=== PATIENT | female | born 1960 | race Asian ===

== ENCOUNTER 2021-04-01 12:59 | Outpatient (CLI) | payer OTHER ==
--- NOTE | 2021-04-02 12:15 | Mammography Report ---
BILATERAL DIGITAL SCREENING MAMMOGRAM 3D/2D: 04/01/2021 CLINICAL: Routine screening. Comparison is made to exams dated: 11/04/2018 mammogram, 06/22/2017 mammogram, and 11/19/2015 mammogra m - [facility]. The tissue of both breasts is heterogeneously dense. This may lower the sen sitivity of mammography. No significant masses, calcifications, or other findings are seen in either breast. There has been no significant interval change. IMPRESSION: NEGATIVE There is no mammographic evidence of malignancy. A 1 year screening mammogram is recommended. This exam was interpreted at Station ID: [id number]. NOTE: For mammograms, a report in lay terms will be sent to the patient. Approximately 15% of breast malignancies will not be visualized mammographically. In the management of a palpable breast mass, a negative mammogram must not discourage biopsy of a clinically suspicious lesion. Electronically Signed By: Robel romero/yasmin:04/01/2021 15:55:12 ACR BI-RADS Category 1: Negative 3341F PARENCHYMAL PATTERN: (D) - The breast(s) demonstrate(s) heterogeneously dense fibroglandular jatinder altman. BI-RADS CATEGORY: (1) - 1 RECOMMENDATION: (ANNUAL) - Recommend routine annual screening mammography. [id number] 1 year screening LATERALITY: (B)
== END 2021-04-01 13:00 | disposition home or self-care (01) ==
LOC: DI 12:59
DX: Z12.31 Encounter for screening mammogram for malignant neoplasm of breast (principal)

== ENCOUNTER 2024-04-04 09:34 | Outpatient (CLI) | payer OTHER ==
[~2024-04-04 09:34] MED LIST: GADOTERATE MEGLUMINE 7.5 MMOL/15 ML VIAL ONE
--- NOTE | 2024-04-04 16:32 | MRI Report ---
PROCEDURE: Pelvis W/WO INDICATIONS: ENLARGED OVARY CONTRAST: Clariscan 10.8ml TECHNIQUE: Coronal ultra fast SE, sagittal breath-hold T2 FSE; axial T1 FSE with and without fat saturation thro ugh the pelvis. Optional long- and short-axis uterine nonbreath-hold T2 FSE through the uterus. Sag ittal or axial dynamic ultra fast GE during administration of contrast. Post-contrast axial or coron al ultra fast GE / 2-D spoiled GE with fat saturation from the iliac crests to the symphysis. Option al diffusion weighted imaging and ADC may be performed. COMPARISON: CT abdomen pelvis 02/21/2024 FINDINGS: Image quality: Excellent. Uterus: The uterus is absent. The vaginal cuff appears normal. Adnexa: The left ovary is diminutive, appropriate for postmenopausal female. The right ovary is repla pushpa by a thin-walled, unilocular, homogeneous cyst measuring 7.1 x 6.9 x 6.7 cm. No septations or mur al nodularity. No significant peripheral, nodular, or septal enhancement. Urinary system: Bladder wall is normal in thickness. Distal ureters are non distended. Urethra cordell ears normal in morphology. Nodes and vessels: No pelvic or inguinal adenopathy by size criteria. Iliac vessels are normal in s ize. Bowel and peritoneum: No pathologic free pelvic fluid. The appendix appears normal. Inferior colon and small bowel loops are normal in caliber. Soft tissues: No inguinal hernias. No findings of pelvic floor incompetence in the absence of provo cation. Bones: Marrow demonstrates normal overall signal. IMPRESSION: Thin-walled right ovarian simple cyst without suspicious features measuring 7.1 cm. This is likely a benign cystadenoma. Follow-up ultrasound in 6-12 months to assess for size change is recommended. Normal left ovary. Hysterectomy. Reviewed by: Dulce Maria Holly MD on 04/04/2024 4:30 PM PDT Approved by: Dulce Maria Holly MD on 04/04/2024 4:30 PM PDT Station ID: [id number]
[2024-04-04] MEDS: GADOTERATE MEGLUMINE 7.5 MMOL/15 ML VIAL IVP ONE (17:15)
== END 2024-04-04 09:35 | disposition home or self-care (01) ==
LOC: DI 09:34
PROVIDERS: ATTEND Nurse Practitioner Family
DX: N83.291 Other ovarian cyst, right side (principal); Z90.710 Acquired absence of both cervix and uterus

== ENCOUNTER 2025-04-23 04:53 | Observation (INO) ==
--- OUTSIDE RECORDS SUMMARY | 2025-04-23 05:16 | EXTERNAL MEDICAL SUMMARY RPT | Continuity of Care Document ---
Author Organization [facility] Address [address] [place] [address] [address] [place] [address] Phone Problems date description facility 2025-02-07 12:44 Unspecified ovarian cyst, right side [facility] 2025-02-12 10:55 Unspecified ovarian cyst, right side [facility] 2025-02-12 10:59 Unspecified ovarian cyst, right side [facility] 2025-02-26 11:04 Unspecified ovarian cyst, right side [facility] 2025-02-28 10:24 Unspecified ovarian cyst, right side [facility] 2025-03-02 15:11 Unspecified ovarian cyst, right side [facility] 2025-03-15 13:26 Unspecified ovarian cyst, right side [facility] 2025-03-21 14:42 Unspecified ovarian cyst, right side [facility] 2025-03-21 14:43 Unspecified ovarian cyst, right side [facility] Social History date description facility
[2025-04-23 05:31] LABS: HCT - HEMATOCRIT 37.5 % (37.0-47.0); HGB - HEMOGLOBIN 12.4 g/dL (12.0-16.0); MEAN PLATELET VOLUME 10.6 fL (7.9-10.8); NRBC ABSOLUTE COUNT (AUTO) 0.00 x10^3/uL; NUCLEATED RED BLOOD CELLS AUTO 0.0 /100WBC; PLT - PLATELET COUNT 153 10^3/uL (130-450); RED CELL DISTRIBUTION WIDTH 13.1 % (12.0-15.0)
[2025-04-23] MEDS: SODIUM CHLORIDE 0.9% 1,000 ML IV STA (05:31)
[2025-04-23 05:37] LABS: INR 1.4 (0.8-1.2); PT - PROTHROMBIN TIME 15.4 secs (9.9-12.6)
[2025-04-23 05:41] LABS: SLIDE REVIEW? Indicated
[2025-04-23 05:49] LABS: ALT ALANINE AMINOTRANSFERASE 98.0 IU/L (10-60); AST ASPARTATE AMINOTRANSFERASE 171.0 IU/L (10-42); BUN - BLOOD UREA NITROGEN 15.0 mg/dL (6-20); CARBON DIOXIDE - CO2 23.0 mmol/L (21-32); CREATININE 0.7 mg/dL (0.6-1.3); GFR - MDRD 84.0 (>89)
[2025-04-23 05:56] LABS: PLATELET ESTIMATE, MANUAL NORMAL (130-450,000) (NORMAL); PLATELET MORPHOLOGY NORMAL APPEARANCE (NORMAL); RBC MORPHOLOGY (MULTIPLE) 2+ MACROCYTOSIS (NORMAL); SLIDE SENT FOR PATH REVIEW? Indicated; WBC MORPHOLOGY (MULTIPLE) NORMAL APPEARANCE (NORMAL)
--- NOTE | 2025-04-23 07:10 | ED Physician Documentation ---
History of Present Illness Stated complaint Stated Complaint: GI Chief complaint Chief Complaint: General History obtained from History obtained from: Patient Additonal information Additional information: The patient comes to the emergency department chief complaint of rectal bleeding that started overnight. She states that she felt as though she needed to have a bowel movement but then when she looked in the toilet, it looked like all blood and clots with a little bit of grainy material in it. That was around 3 AM. She states she has had a total of 4 episodes so far and they have all been bright red blood. She just went in a hat in the toilet in her room in the emergency department, and states that now she is passing more clots. She denies any lightheadedness or shortness of breath. No abdominal pain. She has a history of diverticular bleed about 10 years ago and at that time she had to have surgery. Dr. Lutz was her surgeon. No other complaints at this time. She is not on anticoagulation. Meds/Allgy Home Medications Ambulatory Orders Medication Instructions Recorded Confirmed atorvastatin 10 mg tablet (Lipitor) 10 mg PO QDAY 01/3103/15/25 felodipine 2.5 mg tablet,extended 2.5 mg PO QDAY 09/1403/15/25 release 24 hr metoprolol succinate 50 mg 50 mg PO QDAY 09/14/2403/02 tablet,extended release 24 hr sodium sul 1.479 gram-potas ch See Rx Instructions PO PER PKG DIR 12/08/24 03/15/25 0.188 gram-magnes sul 0.225 gram #24 tabs tablet (Sutab) Allergies Allergies Allergy/AdvReac Type Severity Reaction Status Date / Time ofloxacin Allergy Severe Unknown Verified 04/23/25 05:07 sulfamethoxazole Allergy Severe Unknown Verified 04/23/25 05:07 trimethoprim Allergy Severe Unknown Verified 04/23/25 05:07 amoxicillin Allergy Unknown Verified 04/23/25 05:07 Penicillins Allergy Unknown Verified 04/23/25 05:07 PFSH Active Problems All Active Problems (Updated 12/06/24 @ 16:47 by Pepito Lutz MD) Colon cancer screening (Acute) Dyspareunia in female (Acute) Right ovarian cyst (Acute) Edema (Acute) DVT prophylaxis (Acute) Benign essential hypertension (Acute) Hypokalemia (Acute) Medical History Medical History (Updated 12/06/24 @ 16:47 by Pepito Lutz MD) Anemia due to acute blood loss GI bleed Lower gastrointestinal bleed Diverticulosis large intestine w/o perforation or abscess w/bleeding Perforation of colon as colonoscopy complication Steatosis of liver Osteoporosis Hypertensive disorder Hyperlipoproteinemia GERD (gastroesophageal reflux disease) Surgical History Surgical History (Updated 12/06/24 @ 16:47 by Pepito Lutz MD) S/P partial colectomy Hx of colonoscopy 05/20/2015 - formerly [facility] Dr. Lutz NEG 10yr recall History of hysterectomy History of hernia surgery 2017 History of colon surgery Family History Family History Mother Colon cancer High blood pressure Tuberculosis Social History Social History Do you dip or chew tobacco?: No Do you feel safe in your home environment?: Yes History of physical, verbal, emotional, or financial abuse?: No ETOH Use: Frequency: Daily Exam Exam Vital Signs: Vital Signs x48h Temp Pulse Resp BP Pulse Ox 04/23/25 04:53 36.4 C L 113 H 18 146/66 H 100 Constitutional normal general appearance and no apparent distress HENMT normocephalic, head/scalp atraumatic, external nose normal and oral mucous membranes normal Eyes EOMs intact bilaterally Neck/C-Spine visual inspection normal and supple Respiratory breath sounds equal bilaterally, normal respiratory effort and clear to aus cultation bilaterally Cardiovascular normal heart rate noted, regular rhythm noted and no edema Gastrointestinal abdomen normal to inspection, abdomen soft to palpation, nontender to palpation and nondistended Genitourinary no CVA tenderness Extremities normal to inspection Neurology Alert, grossly intact Psychiatry mental status grossly normal Skin skin color normal Results Vitals Vitals: Vital Signs - 24 hr 04/23/25 04:53 Temperature 36.4 C L Temperature Source Temporal Artery Scan Pulse Rate 113 H Respiratory Rate 18 Blood Pressure 146/66 H O2 Saturation 100 O2 Source Room air Pain Intensity 0 Oxygen O2 Source Room air Labs Labs: Laboratory Tests 04/23/25 05:22 WBC 8.0 RBC 3.38 L Hgb 12.4 Hct 37.5 MCV 110.9 H MCH 36.7 H MCHC 33.1 RDW 13.1 Plt Count 153 MPV 10.6 Neut # (Auto) 3.9 Lymph # (Auto) 3.1 [place] # (Auto) 0.8 Eos # (Auto) 0.1 Baso # (Auto) 0.1 Absolute Nucleated RBC 0.00 Nucleated RBC % 0.0 Manual Slide Review Indicated WBC Morphology NORMAL APPEARANCE Platelet Estimate NORMAL (130-450,000) Platelet Morphology NORMAL APPEARANCE RBC Morph Micro Appear 2+ MACROCYTOSIS PT 15.4 H INR 1.4 H Sodium 139 Potassium 4.1 Chloride 102 Carbon Dioxide 23 Anion Gap 14.0 H BUN 15 Creatinine 0.7 Estimated GFR (MDRD) 84 L Glucose 123 H Calcium 9.4 Total Bilirubin 1.3 H AST 171 H ALT 98 H Alkaline Phosphatase 102 Total Protein 7.6 Albumin 4.3 Globulin 3.3 Albumin/Globulin Ratio 1.3 Lipase 47 Slides for Path Review Indicated Blood Type O POSITIVE Antibody Screen NEGATIVE PD Medical Decision Making ED course Complexity details: reviewed old records, reviewed results, considered differential, d/w patient and d/w family ED course: The patient's abdominal exam was benign, but I was able to view her output in the hat and it did appear to be leander blood with clots. The patient was worked up with laboratory studies which were unremarkable. Hemoglobin was normal. She was mildly tachycardic but not hypotensive. She was given a liter of normal saline here in the emergency department. I sent her for an arterial phase CT which is pending at this time. Patient signed out to Dr. Landa at change of shift, pending CT results and final disposition. Discharge Plan Discharge Prescriptions: No Action Sutab 1.479-0.188- 0.225 gram tablet See Rx Instructions PO PER PKG DIR Qty: 24 0RF Rx Instructions: Please follow instructions provided by the surgical clinic. felodipine 2.5 mg tablet extended release 24 hr 2.5 mg PO QDAY atorvastatin [Lipitor] 10 mg tablet 10 mg PO QDAY metoprolol succinate 50 mg tablet extended release 24 hr 50 mg PO QDAY Print Language: Macedonian Stand Alone Forms: PCP List
[2025-04-23 07:24] LABS: HCT - HEMATOCRIT 34.2 % (37.0-47.0); HGB - HEMOGLOBIN 11.2 g/dL (12.0-16.0)
[2025-04-23] MEDS: LACTATED RINGERS 1,000 ML IV STA ×2 (07:28→11:57)
--- NOTE | 2025-04-23 09:32 | CT Report ---
PROCEDURE: CT Angio Abdomen/Pelvis INDICATIONS: lower GI bleeding CONTRAST: 100 ML OMNI 300 TECHNIQUE: After the administration of intravenous contrast, images were acquired from the diaphragm to the symphysis. Maximum-intensity projection (MIP) reformats were then acquired. For radiation dose reduction, the following was used: automated exposure control, adjustment of mA and/or kV according to patient size. COMPARISON: Pelvic ultrasound 11 02/26/2025, MRI pelvis with and without contrast dated 04/04/2024, outside CT abdomen and pelvis dated 02/21/2024, FINDINGS: Image quality: Excellent. VESSELS: Aorta: Patent Mesenteric arteries: Celiac trunk, superior and inferior mesenteric arteries appear patent. Right pelvic arteries: Patent Left pelvic arteries: Patent CHEST: Lung bases and heart: Left ventricle is enlarged with wall thickening, particularly at the apex, likely representing evidence of previous infarct. ABDOMEN: Liver: Moderate to severe diffuse hepatic steatosis with hypertrophy of the left lobe of the liver. Gallbladder and biliary tree: Distended gallbladder. No gallbladder wall thickening. Spleen: No splenomegaly. Pancreas: No pancreatic ductal dilation. Adrenals: No adrenal nodule. Kidneys and ureters: No hydronephrosis. No renal cystic lesion which requires follow up. No solid mass. Bowel and peritoneum: No bowel distension. No pathologic free fluid. Remote partial distal colectomy. Diverticulosis. No acute hemorrhage during the study. Lymph nodes: No central or retroperitoneal adenopathy. PELVIS Reproductive organs: Again noted is a cystic lesion of the right ovary measuring 7.0 x 6.6 x 7.8 cm. There are small associated calcifications. Reference coronal image 57 of series 10 and axial image 99 of series 8. It is minimally increased in size on the previous outside CT, in which it measured 6.7 x 6.2 x 7.7 cm. Reference previous sagittal image 81 of series 6 and previous axial image 145 of series 4. Uterus is surgically absent.. Bladder: No abnormal wall thickening, accounting for underdistension. Pelvic lymph nodes: No pelvic adenopathy by size criteria. Bones: No aggressive osseous abnormality. Other: No significant ventral or inguinal hernia. IMPRESSION: 1. Diffuse hepatic steatosis is moderate to severe prominence of the left lobe of the liver suggesting possible cirrhotic change. 2. No acute extravasation occurred during the study. No acute hemorrhage identified. 3. Slight interval growth of a cystic lesion of the right ovary. It now measures 7.0 x 6.6 x 7.8 cm. 4. Distended gallbladder. 5. Left ventricular wall thinning, most notably at the apex, likely representing sequelae of previous infarct. The left ventricle is enlarged. Above discussed with Dr. Landa at the time of dictation on 04/23/2025 at 0926 hours. 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 Reviewed by: Brent Yusuf MD on 04/23/2025 9:31 AM PDT Approved by: Brent Yusuf MD on 04/23/2025 9:31 AM PDT Station ID: [id number]
--- NOTE | 2025-04-23 10:32 | ED Physician Documentation ---
ED Addendum Addendum Addendum: The patient was handed off to me at change of shift at the time pending CTA of the abdomen and pelvis with acute onset of bright red blood and clots per rectum overnight. Initial blood count showed a hemoglobin of 12. This was repeated after change of shift and had a 2-1/2-hour interval it was now 11 so minimal but still a drop in the blood count. Vital signs remained stable with normotension and is not tachycardic. She was given some IV fluids. The patient did have a colonoscopy within the last year by Dr. Urias which showed diverticulitis. Diverticulosis without any other acute abnormalities. She has had a previous diverticular bleeding that required partial colectomy with primary anastomosis due to a perforation. She has been doing well and that was in 2014 I believe she says. The patient appears well at this time. Her CT scan showed a slightly enlarged cyst on the right ovary. More correctly stated shows a large cyst of 7 cm which is slightly more enlarged compared to the most recent imaging at 6.7 cm. No acute diverticulitis or signs of perforation are noted. Dr. Trevino is doing colonoscopies. He was contacted and will see patient between these. He was consulted approximately 930 this morning. Presumption would be the patient will be in observation to assess ongoing bleeding but deferred to general surgery. Talked back with Dr. Urias at 1216, he was still in the midst of a series of colonoscopies and we was reviewing the patient's prior scope and will come see her. Serial blood counts were done which showed a mild consistent drop in blood count from 12 to 11 to 10 over course of [address] Lutz subsequently did come to see the patient after his series of coonoscopies. Talked with pt and consensus to do a colonoscopy today after saline enema preps. OR had some other cases still going so further time before being able to take her. Pt did finally go to the OR for scoping about [address] Lutz will dispo the patient from there. Disposition: trasnfer to [facility], stable. Diagnosis: lower GI bleeding history of diverticulosis Discharge Plan Discharge Patient Disposition: ED Transfer to [facility] Condition: Stable Clinical Impression: Acute lower gastrointestinal bleeding Interventions: ED Admission Assessment Last Done: 04/23/25 19:41 ED Discharge Assessment Last Done: 04/23/25 19:41 Vitals documented within 30 minutes of discharge?: Yes
[2025-04-23 12:18] LABS: HCT - HEMATOCRIT 30.6 % (37.0-47.0); HGB - HEMOGLOBIN 10.2 g/dL (12.0-16.0)
[2025-04-23] MEDS: SALINE ENEMA 133 ML BOTTLE RC STA ×2 (15:27→15:46)
--- NOTE | 2025-04-23 17:50 | CONSULTATION NOTE ---
Referring Provider Name of Referring Provider:: Dr. Pepito Landa Consult Date: 04/23/25 Chief Complaint Chief Complaint Chief Complaint: Hematochezia History of Present Illness Admitted From Admitted From:: Not History Obtained From Records Reviewed: Yes History obtained from: Patient Exam Limitations: None History of Present Illness HPI Comment/Other: Patient is a 64-year-old female who is well-known to me as I performed a colonoscopy in December of this year finding diverticular disease as well as hemorrhoids. Who presents to our emergency department with a complaint of blood per rectum. She admits that she has been constipated for quite some time. She also admits to wiping somewhat obsessively. She has had bright red blood per rectum for the better part of 24 hours which concerned her which brought her into the emergency department. Interestingly, her is the first patient I performed a colonoscopy on today. She denies any weight loss. PFSH Active Problems All Active Problems (Updated 04/23/25 @ 17:52 by Pepito Lutz MD) Hematochezia (Acute) Acute lower gastrointestinal bleeding (Acute) Colon cancer screening (Acute) Dyspareunia in female (Acute) Right ovarian cyst (Acute) Edema (Acute) DVT prophylaxis (Acute) Benign essential hypertension (Acute) Hypokalemia (Acute) Medical History Medical History (Updated 04/23/25 @ 17:52 by Pepito Lutz MD) Anemia due to acute blood loss GI bleed Lower gastrointestinal bleed Diverticulosis large intestine w/o perforation or abscess w/bleeding Perforation of colon as colonoscopy complication Steatosis of liver Osteoporosis Hypertensive disorder Hyperlipoproteinemia GERD (gastroesophageal reflux disease) Surgical History Surgical History S/P partial colectomy Hx of colonoscopy 05/20/2015 - [facility] Dr. Lutz NEG 10yr recall History of hysterectomy History of hernia surgery 2017 History of colon surgery Family History Family History Mother Colon cancer High blood pressure Tuberculosis Social History Social History Do you dip or chew tobacco?: No Do you feel safe in your home environment?: Yes History of physical, verbal, emotional, or financial abuse?: No ETOH Use: Frequency: Daily Meds/Allgy Home Medications Ambulatory Orders Medication Instructions Recorded Confirmed atorvastatin 10 mg tablet (Lipitor) 10 mg PO QDAY 01/3104/23/25 felodipine 2.5 mg tablet,extended 2.5 mg PO QDAY 09/1404/23/25 release 24 hr metoprolol succinate 50 mg 50 mg PO QDAY 09/14/2404/09 tablet,extended release 24 hr Allergies Allergies Allergy/AdvReac Type Severity Reaction Status Date / Time ofloxacin Allergy Severe Unknown Verified 04/23/25 05:07 sulfamethoxazole Allergy Severe Unknown Verified 04/23/25 05:07 trimethoprim Allergy Severe Unknown Verified 04/23/25 05:07 amoxicillin Allergy Unknown Verified 04/23/25 05:07 Penicillins Allergy Unknown Verified 04/23/25 05:07 Results Lab Results 04/23/25 12:15 04/23/25 05:22 Other Lab Results: Lab Results x24hrs 04/23/25 04/23/25 04/23/25 Range/Units 12:15 07:13 05:22 WBC 8.0 (4.8-10.8) x10^3/uL RBC 3.38 L (4.20-5.40) 10^6/uL Hgb 10.2 L 11.2 L 12.4 (12.0-16.0) g/dL Hct 30.6 L 34.2 L 37.5 (37.0-47.0) % MCV 110.9 H (81.0-99.0) fL MCH 36.7 H (27.0-31.0) pg MCHC 33.1 (32.0-36.0) g/dL RDW 13.1 (12.0-15.0) % Plt Count 153 (130-450) 10^3/uL MPV 10.6 (7.9-10.8) fL Neut # (Auto) 3.9 (1.5-6.6) 10^3/uL Lymph # (Auto) 3.1 (1.5-3.5) 10^3/uL [place] # (Auto) 0.8 (0.0-1.0) 10^3/uL Eos # (Auto) 0.1 (0.0-0.7) 10^3/uL Baso # (Auto) 0.1 (0.0-0.1) 10^3/uL Absolute Nucleated RBC 0.00 x10^3/uL Nucleated RBC % 0.0 /100WBC Manual Slide Review Indicated WBC Morphology NORMAL APPEARANCE (NORMAL) Platelet Estimate NORMAL (130-450,000) (NORMAL) Platelet Morphology NORMAL APPEARANCE (NORMAL) RBC Morph Micro Appear 2+ MACROCYTOSIS (NORMAL) PT 15.4 H (9.9-12.6) secs INR 1.4 H (0.8-1.2) Sodium 139 (135-145) mmol/L Potassium 4.1 (3.5-4.5) mmol/L Chloride 102 (101-111) mmol/L Carbon Dioxide 23 (21-32) mmol/L Anion Gap 14.0 H (6-13) BUN 15 (6-20) mg/dL Creatinine 0.7 (0.6-1.3) mg/dL Estimated GFR (MDRD) 84 L (>89) Glucose 123 H (74-104) mg/dL Calcium 9.4 (8.5-10.3) mg/dL Total Bilirubin 1.3 H (0.2-1.0) mg/dL AST 171 H (10-42) IU/L ALT 98 H (10-60) IU/L Alkaline Phosphatase 102 (42-121) IU/L Total Protein 7.6 (6.4-8.9) g/dL Albumin 4.3 (3.2-5.5) g/dL Globulin 3.3 (2.1-4.2) g/dL Albumin/Globulin Ratio 1.3 (1.0-2.2) Lipase 47 (11-82) U/L Slides for Path Review Indicated Blood Type O POSITIVE Antibody Screen NEGATIVE Review of Systems Status of ROS: 10 or more systems reviewed and unremarkable except as noted in history and below Exam Exam Vital Signs: Vital Signs x48h Pulse Resp BP Pulse Ox 04/23/25 14:43 118 H 18 144/64 H 98 04/23/25 11:24 128 H 21 143/67 H 100 General: 64-year old clearly nervous female, appears stated age, well developed, well nourished, evaluated in room 9 at [facility] emergency department in the presence of her and [id number] HEENT: Normocephalic, atraumatic, extraocular movement intact, mucous membranes pink and moist, sclera anicteric and not injected Neck: Supple without pain on palpation, mass or bruit Cardiac: Regular rate and rhythm without rub, gallop, or murmur Chest: Clear to auscultation bilaterally Abdomen: Soft, nontender, normoactive bowel sounds, no hepatomegaly, no splenomegaly Genitourinary: Deferred Rectal: Deferred until sigmoidoscopy Extremities: No gross neurovascular problem, no clubbing, cyanosis or edema Gait: No gross motor deficit Psychiatric: Alert and oriented to person place and time, asks and answers questions appropriately, mood and affect appropriate Conclusion/Plan Problem List (1) Hematochezia: (2) Acute lower gastrointestinal bleeding: Plan Sigmoidoscopy with possible biopsies and/or polypectomies. Indications, procedure, alternatives (such as barium enema, Cologuard and even no procedure at all) and risks including but not limited to perforation requiring operative repair, bleeding with its risks, and were fully explained to her her and [id number]. Review of her history does not reveal any significant systemic disease that would contraindicate use of conscious sedation or MAC anesthesia. All questions were fully answered. Verbal and written consent has been obtained. The patient in preparation for her sigmoidoscopy has been n.p.o. and her colon has been mechanically prepped with 2 enemas. Explained that he should the etiology of the bleeding be hemorrhoidal it is entirely likely that she will be discharged home with the instructions to keep her stool soft. She should not wipe excessively and explained that after wiping just once or twice she should use soap and water but either Dial, Zest, Ivory or another drying soap. Every attempt should be made to keep her skin clean and dry without irritating the hemorrhoids excessively. 30 minutes of [id number] time spent with the patient, the majority of which was spent in discussion, coordination of care, and completion of the requisite [place] cpt 98099 Lab Results 04/23/25 12:15 04/23/25 05:22
--- NOTE | 2025-04-23 18:36 | ANESTHESIA PROCEDURE NOTE ---
Pre-Anesthesia VS, & Labs Diagnosis Surgical Diagnosis:: bleeding hemorrhoids, lower GI bleed, excessive wiping Procedure Procedure: sigmoidoscopy Vitals Vital Signs: Temp Pulse Resp BP Pulse Ox 36.4 C L 114 H 18 152/64 H 99 04/23/25 04:53 04/23/25 17:55 04/23/25 17:55 04/23/25 17:55 04/23/25 17:55 NPO NPO: >8 hours Is Patient ?: No Lab Results Current Lab Results: Laboratory Tests 04/23/25 12:15: Hgb 10.2 L, Hct 30.6 L 04/23/25 07:13: Hgb 11.2 L, Hct 34.2 L 04/23/25 05:22: WBC 8.0, RBC 3.38 L, Hgb 12.4, Hct 37.5, MCV 110.9 H, MCH 36.7 H , MCHC 33.1, RDW 13.1, Plt Count 153, MPV 10.6, Neut # (Auto) 3.9, Lymph # (Auto) 3.1, Norton # (Auto) 0.8, Eos # (Auto) 0.1, Baso # (Auto) 0.1, Absolute Nucleated RBC 0.00, Nucleated RBC % 0.0, Manual Slide Review Indicated, WBC Morphology NORMAL APPEARANCE, Platelet Estimate NORMAL (130-450,000), Platelet Morphology NORMAL APPEARANCE, RBC Morph Micro Appear 2+ MACROCYTOSIS, PT 15.4 H, INR 1.4 H, Sodium 139, Potassium 4.1, Chloride 102, Carbon Dioxide 23, Anion Gap 14.0 H, BUN 15, Creatinine 0.7, Estimated GFR (MDRD) 84 L, Glucose 123 H, Calcium 9.4, Total Bilirubin 1.3 H, AST 171 H, ALT 98 H, Alkaline Phosphatase 102, Total Protein 7.6, Albumin 4.3, Globulin 3.3, Albumin/Globulin Ratio 1.3, Lipase 47, Blood Type O POSITIVE, Antibody Screen NEGATIVE 04/23/25 12:15 04/23/25 05:22 Meds/Allgy Home Medications Ambulatory Orders Medication Instructions Recorded Confirmed atorvastatin 10 mg tablet (Lipitor) 10 mg PO QDAY 01/3104/23/25 felodipine 2.5 mg tablet,extended 2.5 mg PO QDAY 09/1404/23/25 release 24 hr metoprolol succinate 50 mg 50 mg PO QDAY 09/14/2404/09 tablet,extended release 24 hr Allergies Allergies Allergy/AdvReac Type Severity Reaction Status Date / Time ofloxacin Allergy Severe Unknown Verified 04/23/25 05:07 sulfamethoxazole Allergy Severe Unknown Verified 04/23/25 05:07 trimethoprim Allergy Severe Unknown Verified 04/23/25 05:07 amoxicillin Allergy Unknown Verified 04/23/25 05:07 Penicillins Allergy Unknown Verified 04/23/25 05:07 PFSH Active Problems All Active Problems (Updated 04/23/25 @ 17:52 by Pepito Lutz MD) Hematochezia (Acute) Acute lower gastrointestinal bleeding (Acute) Colon cancer screening (Acute) Dyspareunia in female (Acute) Right ovarian cyst (Acute) Edema (Acute) DVT prophylaxis (Acute) Benign essential hypertension (Acute) Hypokalemia (Acute) Medical History Medical History (Updated 04/23/25 @ 17:52 by Pepito Lutz MD) Anemia due to acute blood loss GI bleed Lower gastrointestinal bleed Diverticulosis large intestine w/o perforation or abscess w/bleeding Perforation of colon as colonoscopy complication Steatosis of liver Osteoporosis Hypertensive disorder Hyperlipoproteinemia GERD (gastroesophageal reflux disease) Surgical History Surgical History S/P partial colectomy Hx of colonoscopy 05/20/2015 - [facility] Dr. Lutz NEG 10yr recall History of hysterectomy History of hernia surgery 2017 History of colon surgery Family History Family History Mother Colon cancer High blood pressure Tuberculosis Social History Social History Do you dip or chew tobacco?: No Do you feel safe in your home environment?: Yes History of physical, verbal, emotional, or financial abuse?: No ETOH Use: Frequency: Daily Anesthesia Exam (Expanded) Exam General: Alert, Oriented x3 and No acute distress Dental: WNL Mallampati classification: II Respiratory: Lungs clear Cardiovascular: Regular rate Exam Exam Vital Signs: Vital Signs x48h Pulse Resp BP Pulse Ox 04/23/25 17:55 114 H 18 152/64 H 99 09/15/25 14:43 118 H 18 144/64 H 98 04/23/25 11:24 128 H 21 143/67 H 100 Plan Problem List (1) Hematochezia: (2) Acute lower gastrointestinal bleeding: Plan Sigmoidoscopy with possible biopsies and/or polypectomies. Indications, procedure, alternatives (such as barium enema, Cologuard and even no procedure at all) and risks including but not limited to perforation requiring operative repair, bleeding with its risks, and were fully explained to her her and [id number]. Review of her history does not reveal any significant systemic disease that would contraindicate use of conscious sedation or MAC anesthesia. All questions were fully answered. Verbal and written consent has been obtained. The patient in preparation for her sigmoidoscopy has been n.p.o. and her colon has been mechanically prepped with 2 enemas. Explained that he should the etiology of the bleeding be hemorrhoidal it is entirely likely that she will be discharged home with the instructions to keep her stool soft. She should not wipe excessively and explained that after wiping just once or twice she should use soap and water but either Dial, Zest, Ivory or another drying soap. Every attempt should be made to keep her skin clean and dry without irritating the hemorrhoids excessively. 30 minutes of [id number] time spent with the patient, the majority of which was spent in discussion, coordination of care, and completion of the requisite [place] c[place] 73109 Plan Anesthesia Type: Total IV Consent for Procedure(s) Verified and Reviewed: Yes Code Status: Attempt Resuscitation ASA Classification ASA classification: 2-Mild systemic disease Is this case an emergency?: Yes
[2025-04-23] MEDS ORDERED: PROPOFOL 500 MG/50 ML 500 MG/50 ML VIAL ONE (19:13)
[2025-04-23] MEDS ORDERED: SODIUM CHLORIDE FLUSH 0.9% 10 ML SYRINGE IVP PRN (20:37)
--- NOTE | 2025-04-23 21:06 | ANESTHESIA POST OP EVALUATION ---
Anesthesia Post Eval Post Anesthesia Eval Vitals: Last Vital Signs Temp 36.4 C L 04/23/25 20:40 Pulse 107 H 04/23/25 20:40 Resp 26 H 04/23/25 20:40 BP 131/54 H 04/23/25 20:40 Pulse Ox 97 04/23/25 20:40 CV Function Including HR & BP: Stable Pain Control: Satisfactory Nausea & Vomiting: Negative Mental Status: Baseline Respiratory Status: Airway Patent Hydration Status: Satisfactory Anesthesia Complications: None
[2025-04-23] MEDS: SODIUM CHLORIDE 0.9% 1,000 ML IV SCH (22:02)
[2025-04-23] MEDS: METOPROLOL SUCCINATE 50 MG TABLET PO SCH (22:08)
[2025-04-23] MEDS: SODIUM CHLORIDE FLUSH 0.9% 10 ML SYRINGE IVP SCH (23:30)
[2025-04-24 04:54] LABS: HCT - HEMATOCRIT 21.8 % (37.0-47.0); HGB - HEMOGLOBIN 7.1 g/dL (12.0-16.0); MEAN PLATELET VOLUME 10.3 fL (7.9-10.8); NRBC ABSOLUTE COUNT (AUTO) 0.00 x10^3/uL; NUCLEATED RED BLOOD CELLS AUTO 0.0 /100WBC; PLT - PLATELET COUNT 103 10^3/uL (130-450); RED CELL DISTRIBUTION WIDTH 13.5 % (12.0-15.0)
[2025-04-24 04:58] LABS: SLIDE REVIEW? Indicated
[2025-04-24 05:36] LABS: PLATELET ESTIMATE, MANUAL DECREASED (<130,000) (NORMAL); PLATELET MORPHOLOGY NORMAL APPEARANCE (NORMAL); RBC MORPHOLOGY (MULTIPLE) 3+ MACROCYTOSIS (NORMAL); WBC MORPHOLOGY (MULTIPLE) NORMAL APPEARANCE (NORMAL)
[2025-04-24 09:32] LABS: HCT - HEMATOCRIT 23.9 % (37.0-47.0); HGB - HEMOGLOBIN 7.9 g/dL (12.0-16.0); MEAN PLATELET VOLUME 9.9 fL (7.9-10.8); NRBC ABSOLUTE COUNT (AUTO) 0.00 x10^3/uL; NUCLEATED RED BLOOD CELLS AUTO 0.0 /100WBC; PLT - PLATELET COUNT 108 10^3/uL (130-450); RED CELL DISTRIBUTION WIDTH 13.5 % (12.0-15.0)
--- NOTE | 2025-04-24 09:33 | PHARMACY PROGRESS NOTE ---
Best Possible Medication History Admit Date and Time: 04/23/252035 Home Medications Medication Instructions Recorded Confirmed Type atorvastatin 10 mg tablet (Lipitor) 10 mg PO DAILY 01/3104/24/25 History felodipine 2.5 mg tablet,extended 2.5 mg PO DAILY 01/3104/24/25 History release 24 hr metoprolol succinate 50 mg 50 mg PO DAILY 09/14/24 History tablet,extended release 24 hr Lactobacillus acidophilus 10 10,000 mmu cells PO DAILY 04/24/25 04/24/25 History billion cell capsule (NewFlora) Processed by: Pharmacy Medications reviewed in ED?: Yes Medication History completed: Yes Patient Interview: Completed Secondary Source(s): Insurance records [facility] Statement: As the person ultimately responsible for medication therapy, providers are able to order a medication from an existing home medication list in [facility] via the "Reconcile Routine" prior to Confirmation of that medication by client support professional. Such practice is discouraged except when the physician, in their clinical judgment, deems that a medical need exists for a medication without regard to previous use.
[2025-04-24 10:41] LABS: PATHOLOGIST SLIDE COMMENTS SEE SEPARATE REPORT
[2025-04-24 12:37] VITALS: O2SAT 98
--- NOTE | 2025-04-24 15:41 | Discharge Summary ---
"Discharge Summary Admit Date: 04/23/25 Discharge Date: 04/24/25 Discharging Provider: Pepito Lutz Code Status: Attempt Resuscitation DIAGNOSES Admission Diagnoses: Lower GI bleed Discharge Diagnoses with Status of Each Condition: Lower GI bleed - stopped HPI History of Present Illness: Patient is a somewhat nervous 64-year-old female who presented with the abrupt onset of lower GI bleeding yesterday. Of note I had scoped the patient in December of this year finding diverticular disease as well as hemorrhoids. Due to the amount of bleeding and the abrupt onset I recommended that the patient be sent to a tertiary care center where interventional radiology could coil said bleeding however Dr. Landa noted that he could not transfer the patient. He recommended that I scope the patient to look for the source of bleeding. After performing 2 enemas in order to clean out the lower aspect of the patient's colon I took her urgently to the operating room where she had a sigmoidoscopy performed last night. I spent approximately an hour irrigating out the distal 70 cm of the colon and although I saw old blood I did not see any acutely bleeding source. Above 70 cm there was hard green stool without blood. CONSULTS | PROCEDURES Procedures: Sigmoidoscopy 04/23/2025 HOSPITAL COURSE Hospital Course: Following her distal colonic washout she has not had any ongoing GI bleeding. ALLERGIES Allergies Allergy/AdvReac Type Severity Reaction Status Date / Time ofloxacin Allergy Severe Unknown Verified 04/23/25 05:07 sulfamethoxazole Allergy Severe Unknown Verified 04/23/25 05:07 trimethoprim Allergy Severe Unknown Verified 04/23/25 05:07 amoxicillin Allergy Unknown Verified 04/23/25 05:07 Penicillins Allergy Unknown Verified 04/23/25 05:07 MEDICATIONS Ambulatory Orders Medication Instructions Recorded Confirmed atorvastatin 10 mg tablet (Lipitor) 10 mg PO DAILY 01/3104/24/25 felodipine 2.5 mg tablet,extended 2.5 mg PO DAILY 01/3104/24/25 release 24 hr metoprolol succinate 50 mg 50 mg PO DAILY 09/14/24 tablet,extended release 24 hr Lactobacillus acidophilus 10 10,000 mmu cells PO DAILY 04/24/25 04/24/25 billion cell capsule (NewFlora) PHYSICAL EXAM AT DISCHARGE Vital Signs: Vital Signs x48h Temp Pulse Resp BP Pulse Ox 04/24/25 12:36 36.9 C 78 16 120/56 L 98 04/24/25 07:57 37.0 C 87 16 129/61 97 General: 64-year old female, appears stated age, well developed, well nourished HEENT: Normocephalic, atraumatic, extraocular movement intact, mucous membranes pink and moist, sclera anicteric and not injected Neck: Supple without pain on palpation, mass or bruit Cardiac: Regular rate and rhythm without rub, gallop, or murmur Chest: Clear to auscultation bilaterally Abdomen: Soft, nontender, normoactive bowel sounds Genitourinary: Deferred Rectal: Deferred Extremities: No gross neurovascular problem, no clubbing, cyanosis or edema Gait: No gross motor deficit Psychiatric: Alert and oriented to person place and time, asks and answers questions appropriately, mood and affect appropriate LABS 04/24/25 09:24 04/23/25 05:22 FOLLOW UP Follow Up: Follow-up with me should be on an as-needed basis. Should she have recurrent lower GI bleeding I would recommend that she have an evaluation by interventional radiology as mentioned above to determine the site and therapeutically coil the bleeder. TIME SPENT Time Spent in Discharge (Minutes): 45 Discharge Plan Discharge Patient Disposition: 01 Home, Self Care Condition: Stable Medically Cleared Date:: 04/24/25 Prescriptions: Continued NewFlora 10 billion cell capsule 10,000 mmu cells PO DAILY felodipine 2.5 mg tablet extended release 24 hr 2.5 mg PO DAILY atorvastatin [Lipitor] 10 mg tablet 10 mg PO DAILY metoprolol succinate 50 mg tablet extended release 24 hr 50 mg PO DAILY Diet: Regular Care Plan Goals: Patient should absolutely avoid constipation by what ever means possible. I would strongly recommend prunes or prune juice as well as other adjuncts. I explained that her stool should be the consistency of toothpaste. Print Language: Lao Patient Instructions: Surg Dc Stand Alone Forms: PCP List Follow-up Care: Pepito Lutz MD [Provider Admit Priv/Credential, Surgery, General] Referral Note: Only on an as-needed basis. She does not need a repeat scope. Vitals documented within 30 minutes of discharge?: Yes"
[2025-04-24 17:12] VITALS: BP 136/54; TEMP 97.9
== END 2025-04-24 16:30 | disposition home or self-care (01) ==
LOC: ED 04:53 → MS2 20:33 → SDS 20:33
PROVIDERS: ADMIT Surgery; ATTEND Surgery
DX: D53.9 Nutritional anemia, unspecified; Z98.0 Intestinal bypass and anastomosis status; K57.31 Diverticulosis of large intestine without perforation or abscess with bleeding; Z90.49 Acquired absence of other specified parts of digestive tract; R00.0 Tachycardia, unspecified; N83.201 Unspecified ovarian cyst, right side